=== PATIENT | male | born 1980 | race American Indian/Alaskan Native ===

== ENCOUNTER 2017-10-20 16:38 | Inpatient (IN) | payer MEDICAID, OTHER ==
[2017-10-20 17:38] LABS: BASO # 0.1 K/uL (0.0-0.2); BASO % 1.1 % (0.0-2.0); EOS # 0.3 K/uL (0.0-0.7); EOS % 5.2 % (0.0-4.0); HEMOGLOBIN 13.6 g/dL (12.0-18.0); LYMPH # 2.3 K/uL (1.0-4.3); LYMPH % 36.4 % (20.0-40.0); MEAN CELL VOLUME 90.4 fL (80.0-94.0); MEAN CORPUSCULAR HEMOGLOBIN 30.1 pg (27.0-31.0); MEAN CORPUSCULAR HGB CONC 33.3 g/dL (33.0-37.0); MEAN PLATELET VOLUME 7.6 fL (7.2-11.7); MONO # 0.5 K/uL (0.0-0.8); NEUT # 3.2 K/uL (1.8-7.0); NEUT % 50.3 % (50.0-75.0); NRBC % 0.1 % (0.0-2.0); RBC 4.52 Mil/uL (4.40-5.90); RED CELL DISTRIBUTION WIDTH 13.8 % (11.5-14.5); WHITE BLOOD COUNT 6.4 K/uL (4.8-10.8)
[2017-10-20 17:51] LABS: ALB/GLOB RATIO 1.3 (1.0-2.1); ALBUMIN 3.9 g/dL (3.5-5.0); ALT/SGPT 41 U/L (21-72); AST/SGOT 33 U/L (17-59); BLOOD UREA NITROGEN 17 mg/dL (9-20); CALCIUM 9.1 mg/dl (8.6-10.4); GFR AFRICAN-AMERICAN > 60; GFR NON-AFRICAN AMERICAN > 60
--- NOTE | 2017-10-20 18:23 | C.PDOC ---
History Of Present Illness <Masonclark Yunior - Last Filed: 10/20/17 18:49> <Rolo Chavez R - Last Filed: 10/20/17 19:29> 36-year-old male, presents to the emergency department pre screened for detox from alcohol, heroin and xanax. Patient denies any SI/HI. (Yunior Reed DO ) History Per: Patient History/Exam Limitations: no limitations <Brianna MARYYunior - Last Filed: 10/20/17 18:49> <Rolo Chavez R - Last Filed: 10/20/17 19:29> Chief Complaint (Nursing): Substance Abuse Past Medical History Reviewed: Historical Data, Nursing Documentation, Vital Signs - Medical History PMH: Asthma Surgical History: Appendectomy Family History: States: No Known Family Hx - Social History Hx Alcohol Use: Yes Hx Substance Use: Yes - Immunization History Hx Tetanus Toxoid Vaccination: Yes Hx Influenza Vaccination: No Hx Pneumococcal Vaccination: No <Brianna MARYYunior - Last Filed: 10/20/17 18:49> Vital Signs: Last Vital Signs Temp 98.7 F 10/20/17 16:49 Pulse 79 10/20/17 16:49 Resp 18 10/20/17 16:49 BP 139/66 10/20/17 16:49 Pulse Ox 99 10/20/17 18:49 Review Of Systems Constitutional: Negative for: Fever, Chills Cardiovascular: Negative for: Chest Pain Respiratory: Negative for: Shortness of Breath Gastrointestinal: Negative for: Nausea, Vomiting Psych: Negative for: Suicidal ideation, Withdrawal <Brianna Yunior - Last Filed: 10/20/17 18:49> Physical Exam - Physical Exam Appears: Non-toxic, No Acute Distress Skin: Normal Color, Warm, Dry Head: Atraumatic, Normacephalic Eye(s): bilateral: Normal Inspection, PERRL, EOMI Nose: Normal Oral Mucosa: Moist Lips: Normal Appearing Neck: Normal ROM Cardiovascular: Rhythm Regular, No Murmur Respiratory: Normal Breath Sounds, No Accessory Muscle Use Gastrointestinal/Abdominal: Soft, No Tenderness Back: Normal Inspection Extremity: Normal ROM, No Deformity Neurological/Psych: Oriented x3, Normal Speech <Brianna MARYYunior - Last Filed: 10/20/17 18:49> ED Course And Treatment - Laboratory Results Result Diagrams: 10/20/17 17:35 10/20/17 17:35 O2 Sat by Pulse Oximetry: 99 (RA) Pulse Ox Interpretation: Normal <Yunior Reed DO - Last Filed: 10/20/17 18:49> - Laboratory Results Result Diagrams: 10/20/17 17:35 10/20/17 17:35 <Rolo Chavez - Last Filed: 10/20/17 19:29> Disposition <Yunior Reed DO - Last Filed: 10/20/17 18:49> Discussed With Dr.: Jerome Uriarte Doctor Will See Patient In The: Hospital Counseled Patient/Family Regarding: Diagnosis - Disposition Disposition Time: 19:29 - POA Present On Arrival: None <Rolo Chavez - Last Filed: 10/20/17 19:29> - Disposition Disposition: HOSPITALIZED Condition: STABLE Forms: [facility] (Lithuanian) - Clinical Impression Clinical Impression: Drug abuse, Drug dependence - Scribe Statement The provider has reviewed the documentation as recorded by the Scribe (Fer Garcia) <Yunior Reed DO - Last Filed: 10/20/17 18:49> <Rolo Chavez - Last Filed: 10/20/17 19:29> - Scribe Statement All medical record entries made by the Scribe were at my direction and personally dictated by me. I have reviewed the chart and agree that the record accurately reflects my personal performance of the history, physical exam, medical decision making, and the department course for this patient. I have also personally directed, reviewed, and agree with the discharge instructions and disposition. (Yunior Reed DO)
[2017-10-20 18:31] LABS: URINE BACTERIA RARE (<OCC); URINE BILIRUBIN NEGATIVE (NEGATIVE); URINE BLOOD NEGATIVE (NEGATIVE); URINE CLARITY Clear (Clear); URINE COLOR Yellow (YELLOW); URINE GLUCOSE (UA) NORMAL (Normal); URINE LEUKOCYTE ESTERASE NEG Leu/uL (Negative); URINE PROTEIN NEGATIVE (NEGATIVE)
[2017-10-20 18:54] LABS: BARBITURATES, UR NEGATIVE (NEGATIVE); BENZODIAZEPINES, UR NEGATIVE (NEGATIVE); PHENCYCLIDINE, UR NEGATIVE (NEGATIVE)
[2017-10-20 19:04] LABS: OPIATES, UR POSITIVE (NEGATIVE)
--- NOTE | 2017-10-20 19:51 | PCM.BM ---
<Cece Lundberg - Last Filed: 10/20/17 19:49> Treatment Plan Problems - Problems identified on initial assessmt Potential for opiate withdrawal Date Initiated: 10/20/17 Time Initiated: 19:50 Assessment reference: NA Status: Active Priority: 1 Potential for alcohol withdrawal Date Initiated: 10/20/17 Time Initiated: 19:50 Assessment reference: NA Status: Active Priority: 2 Treatment assets and liabiliti Patient Assests: ADL independent, negotiates basic needs, cognitively intact Patient Liabilities: substance abuse (Opiate, Alcohol,cocaine) - Milieu Protocol Maintain good personal hygiene: daily Encourage regular showers, daily Remind patient to perform daily oral care, daily Assist patient to perform ADL's Conduct patient checks and document Observation sheet: Q15 minutes Maintain personal safety: every shift Educate patient to report safety concerns to staff, every shift Monitor environment for contraband/sharps Medication safety: Monitor for expected outcome, potential side effects: every shift, Assess barriers to learning: every shift, Assess readiness for medication education: every shift <Nacho Bertrand - Last Filed: 10/21/17 14:12> - Diagnosis (1) Opioid use disorder, severe, dependence Status: Acute Interventions: 10/21/17 14:11 * Assess 7x/week regarding severity of withdrawal * Educate regarding risks, benefits, side effects and alternatives of medications * Use Motivational Interviewing for abstinence * Use CBT for relapse prevention * Medication management for withdrawal symptoms * Encourage medication assisted treatment *
[2017-10-20] MEDS ORDERED: Albuterol HFA 90 mcg/actuation (8 g) INH PRN (19:54)
--- NOTE | 2017-10-21 13:37 | PCM.PSYCH ---
Initial Psychiatric Evaluation - Initial Psychiatric Evaluation Type of Admission: Voluntary Legal Status: Capacity Chief Complaint (in patient's own words): "I need detox" History of Present Illness and Precipitating Events: The patient is seen, chart reviewed and case discussed. This is a 37-year-old -[place] male, single with one adult son, lives in a long-term, unemployed. The patient is here for heroin detox; he is using 10 bags intranasally for the past 4 years. He was in detox only once and has never been on Suboxone or methadone. He also does cocaine by smoking the last 4 years. He denies other drugs. He admits to drinking a pint of liquor or "lots of" beer, since age 12. However , he has minimal withdrawal symptoms. He admits to smoking marijuana and cigarettes. Past psych history: "I always feel depressed," he states. He has no admissions to psychiatry and no suicide attempts. Family psych history: Uncle used drugs and had psychiatric problems and grandmother was an alcoholic. Medical history: Asthma Current Medications: Active Medications Generic Name Dose Route Start Last Admin Trade Name Freq PRN Reason Stop Dose Admin Al Hydrox/Mg Hydrox/Simethicone 30 ml 10/20/17 20:19 Maalox 30 Ml PO TID PRN Indigestion / Heartburn Albuterol 1 puff 10/20/17 19:54 Ventolin Hfa 90 Mcg/Actuation (8 G) INH RQ6 PRN Shortness of Breath Clonidine HCl 0.1 mg 10/20/17 20:19 Catapres PO Q8 PRN COWS Score More or Equal to 5 Hydroxyzine HCl 25 mg 10/20/17 20:19 Atarax PO Q6 PRN Anxiety Ketoconazole 1 gm 10/21/17 14:00 Nizoral TOP DAILY ELSA Loperamide HCl 2 mg 10/20/17 20:19 Imodium PO Q8 PRN Diarrhea Methadone HCl 15 mg 10/21/17 10:00 10/21/17 09:25 Methadone PO 10/25/17 09:59 15 mg DAILY ELSA Administration Taper Nicotine 1 patch 10/21/17 10:15 10/21/17 11:37 Nicoderm Cq TD 1 patch DAILY ELSA Administration Ondansetron HCl 4 mg 10/20/17 20:19 10/21/17 11:38 Zofran Tab PO 4 mg Q8 PRN Administration Nausea/Vomiting Pseudoephedrine HCl 60 mg 10/20/17 20:19 Sudafed Tab PO QID PRN Nasal/Sinus Congestion Trazodone HCl 50 mg 10/20/17 22:00 10/20/17 21:36 Desyrel PO 50 mg HS ELSA Administration Past Psychiatric History - Past Psychiatric History Previous Treatment History: None Pertinent Medical Hx (Current Medical&Sleep Prob, Allergies): Allergies Allergy/AdvReac Type Severity Reaction Status Date / Time No Known Allergies Allergy Verified 10/20/17 16:47 Selenium Sulfide 10/20/17 Ventolin Hfa 10/20/17 Review of Systems - Neurological Neurological: UNREMARKABLE - Psychiatric Psychiatric: Abnormal Sleep Pattern, Anhedonia, Anxiety, Depression, Difficulty Concentrating. absent: Hallucinations, Homicidal Ideation, Irritability, Paranoia, Suicidal Ideation Mental Status Examination - Personal Presentation Personal Presentation: Looks stated age - Affect Affect: Constricted - Motor Activity Motor Activity: Calm - Reliability in Providing Information Reliability in Providing Information: Good - Speech Speech: Organized - Mood Mood: Depressed, Anxious - Formal Thought Process Formal Thought Process: No Impairment - Cognitive Functions Orientation: Person, Place, Situation, Time Sensorium: Alert Attention/Concentration: Attentive Estimate of Intelligence: Average Judgement: Intact, as evidence by: Insight regarding need for hospitalization Memory: Recent intact, as evidence by: Ability to recall events of the day, Remote intact, as evidenced by: Abilit to recall sig. life events - Risk Risk: Withdrawal, Diminished functioning - Strength & Assets Inventory Strength & Assets Inventory: Cooperative - Limitations Limitations: Living alone, Other DSM 5 DX - DSM 5 DSM 5 Diagnosis: Opioid withdrawal Opioid use d/o- severe Cocaine use d/o- severe Major depression, single/moderate and dysthymic d/o - Recommended/Plan of Treatment Treatment Recommendations and Plan of Treatment: Taper with methadone Gabapentin for augmentation Remeron for depression As needed medications All risks, benefits and alternatives of the meds discussed, and the pt agreed and understood. Attend groups and activities Supportive therapy and psychoeducation MS for abstinence CBT for relapse prevention Encourage MAT Refer to rehab or IOP, and self-help groups Smoking cessation with MS Nicotine patch if needed 34 min Projected ELOS: 5-6 days Prognosis: good - Smoking Cessation Smoking Cessation Initiated: Yes
[2017-10-21] MEDS ORDERED: Magnesium Hydroxide Susp 30 ml UD PO ONE (13:50)
[2017-10-21] MEDS: Aluminum Hydroxide/Magnesium Hydroxide Susp (30 mL) PO PRN (20:17)
--- NOTE | 2017-10-22 09:04 | PCM.PYCHPN ---
Psychiatric Progress Note - Psychiatric Progress Note Patient seen today, length of contact: 16 min Patient Chief Complaint: "I have stomach ache" Problems Identified/Issues Discussed: The pt is seen, chart reviewed, case discussed with staff. Support and psychoeducation given, CBT and PA used briefly No new symptoms reported, improving slowly and needs more time No SEs from medications, risks discussed. After care discussed meds offered for pain Medication Change: Yes (detox changes daily) Medical Record Reviewed: Yes Mental Status Examination - Cognitive Function Orientation: Person, Place, Situation, Time Memory: Intact Attention: WNL Concentration: Poor Association: WNL Fund of Knowledge: WNL - Mood Mood: Depressed, Anxious - Affect Affect: Constricted - Speech Speech: Appropriate - Formal Thought Process Formal Thought Process: No Impairment - Suicidal Ideation Suicidal Ideation: No - Homicidal Ideation Homicidal Ideation: No Goal/Treatment Plan - Goal/Treatment Plan Need for Continued Stay: Discharge may exacerbated symptoms, Severe functional impairment Progress Toward Problem(s) and Goals/Treatment Plan: Taper with methadone Gabapentin for augmentation Remeron for depression As needed medications All risks, benefits and alternatives of the meds discussed, and the pt agreed and understood. Attend groups and activities Supportive therapy and psychoeducation PA for abstinence CBT for relapse prevention Encourage MAT Refer to rehab or IOP, and self-help groups Smoking cessation with PA Nicotine patch if needed Estimated Date of D/C: 10/25/17 - Smoking Cessation Smoking Cessation Initiated: Yes
[2017-10-22] MEDS: Pantoprazole 20 mg EC Tab PO SCH (14:11)
[2017-10-22] MEDS ORDERED: Bisacodyl 5mg EC Tab PO ONE ×2 (17:10→18:16)
[2017-10-23] MEDS: Pantoprazole 20 mg EC Tab PO SCH (09:44)
--- NOTE | 2017-10-23 11:49 | PCM.PYCHPN ---
Psychiatric Progress Note - Psychiatric Progress Note Patient seen today, length of contact: 15 min Patient Chief Complaint: "I am OK" Problems Identified/Issues Discussed: The pt is seen, chart reviewed, case discussed with staff. The pt is compliant with medications and reports no side-effects. Symptoms are improving but needs more time to stabilize. After care discussed, support and psychoeducation given. Medication Change: Yes (detox changes daily) Medical Record Reviewed: Yes Mental Status Examination - Cognitive Function Orientation: Person, Place, Situation, Time Memory: Intact Attention: WNL Concentration: Poor Association: WNL Fund of Knowledge: WNL - Mood Mood: Depressed, Anxious - Affect Affect: Constricted - Speech Speech: Appropriate - Formal Thought Process Formal Thought Process: No Impairment - Suicidal Ideation Suicidal Ideation: No - Homicidal Ideation Homicidal Ideation: No Goal/Treatment Plan - Goal/Treatment Plan Need for Continued Stay: Discharge may exacerbated symptoms, Severe functional impairment Progress Toward Problem(s) and Goals/Treatment Plan: Taper with methadone Gabapentin for augmentation Remeron for depression As needed medications All risks, benefits and alternatives of the meds discussed, and the pt agreed and understood. Attend groups and activities Supportive therapy and psychoeducation RI for abstinence CBT for relapse prevention Encourage MAT Refer to rehab or IOP, and self-help groups Smoking cessation with RI Nicotine patch if needed Estimated Date of D/C: 10/25/17
[2017-10-23] MEDS: Aluminum Hydroxide/Magnesium Hydroxide Susp (30 mL) PO PRN (18:55)
[2017-10-24 06:22] VITALS: RESP 18
[2017-10-24] MEDS: Pantoprazole 20 mg EC Tab PO SCH (10:58)
[2017-10-24] MEDS: Aluminum Hydroxide/Magnesium Hydroxide Susp (30 mL) PO PRN (13:45)
[2017-10-24 19:40] VITALS: TEMP 98.3
--- NOTE | 2017-10-24 22:21 | PCM.PYCHPN ---
Psychiatric Progress Note - Psychiatric Progress Note Patient seen today, length of contact: 15 min Patient Chief Complaint: "I am tired but better" Problems Identified/Issues Discussed: The pt is seen, chart reviewed, case discussed with staff. Support given, CBT and NV used briefly No new symptoms reported, improving slowly and needs more time No SEs from medications, risks discussed. After care discussed - will go to [facility] Medication Change: Yes (detox changes daily) Medical Record Reviewed: Yes Mental Status Examination - Cognitive Function Orientation: Person, Place, Situation, Time Memory: Intact Attention: WNL Concentration: Poor Association: WNL Fund of Knowledge: WNL - Mood Mood: Depressed, Anxious - Affect Affect: Constricted - Speech Speech: Appropriate - Formal Thought Process Formal Thought Process: No Impairment - Suicidal Ideation Suicidal Ideation: No - Homicidal Ideation Homicidal Ideation: No Goal/Treatment Plan - Goal/Treatment Plan Need for Continued Stay: Discharge may exacerbated symptoms, Severe functional impairment Progress Toward Problem(s) and Goals/Treatment Plan: Taper with methadone Gabapentin for augmentation Remeron for depression As needed medications All risks, benefits and alternatives of the meds discussed, and the pt agreed and understood. Attend groups and activities Supportive therapy and psychoeducation NV for abstinence CBT for relapse prevention Encourage MAT Refer to rehab or IOP, and self-help groups Smoking cessation with NV Nicotine patch if needed Estimated Date of D/C: 10/25/17
[2017-10-25 06:26] VITALS: BP 104/67; PULSE 71; O2SAT 99
--- NOTE | 2017-10-25 08:23 | PCM.PYCHDC ---
Mental Status Examination - Mental Status Examination Orientation: Person, Place, Situation, Time Memory: Intact Mood: Anxious Affect: Constricted Speech: Appropriate Attention: WNL Concentration: WNL Association: WNL Fund of Knowledge: WNL Formal Thought Process: No Impairment Suicidal Ideation: No Current Homicidal Ideation?: No Discharge Summary - Discharge Note Reason for Hospitalization: opioid detox Consultations:: List each consultation separately and include: 1. Reason for request. 2. Findings. 3. Follow-up Summary of Hospital Course include:: 1. Description of specific treatment plan utilized for patients during their course of treatmen. 2. Summarize the time- course for resolution of acute symptoms and/or regressed behaviors. 3. Describe issues identified and worked on during hospitalization. 4. Describe medication utilized. 5. Describe medical problems identified and treated. 6. Reassessment of suicide risk Summary of Hospital Course: The patient is seen, chart reviewed and case discussed. On admission: This is a 37-year-old -[place] male, single with one adult son, lives in a intermediate, unemployed. The patient is here for heroin detox; he is using 10 bags intranasally for the past 4 years. He was in detox only once and has never been on Suboxone or methadone. He also does cocaine by smoking the last 4 years. He denies other drugs. He admits to drinking a pint of liquor or "lots of" beer, since age 12. However , he has minimal withdrawal symptoms. He admits to smoking marijuana and cigarettes. Past psych history: "I always feel depressed," he states. He has no admissions to psychiatry and no suicide attempts. Family psych history: Uncle used drugs and had psychiatric problems and grandmother was an alcoholic. Medical history: Asthma Hospital course: The pt was admitted and started on treatment with psychotherapy, support, psychoeducation and medications. AR and CBT used. The pt attended groups and activities, as well as milieu therapy. All the risks and benefits of medications are discussed and the patient understood and agreed. The pt improved with the treatments provided. After care discussed with the patient. He will go to [facility]. - Final Diagnosis (DSM 5) Condition upon Discharge: IMPROVED DSM 5: Opioid withdrawal Opioid use d/o- severe Cocaine use d/o- severe Major depression, single/moderate and dysthymic d/o Disposition: REHAB FACILITY/REHAB UNIT Follow-up Treatment Plan: Continue below medications after discharge. Follow after care plan as discussed. Use relapse prevention skills Return to ER or call 911 if suicidal, homicidal or symptoms relapse. Stay away from stress, alcohol and drugs. See primary doctor regularly and get labs. Prescriptions/Medication Reconciliation: Albuterol HFA [Ventolin HFA 90 mcg/actuation (8 g)] 1 puff INH RQ6 PRN #1 inhaler PRN Reason: Shortness Of Breath Mirtazapine [Remeron] 15 mg PO HS #30 tab Pantoprazole [Protonix EC Tab] 20 mg PO DAILY #30 ect traZODone [Desyrel] 50 mg PO HS #30 tab - Smoking Cessation Smoking Cessation Medication prescribed: No - Antipsychotic Medications Pt discharged on 2 or more routine antipsychotic medications: No
== END 2017-10-25 08:40 | disposition home or self-care (01) | DRG 745 ==
LOC: C.ER 16:38 → C.7D 19:30
PROVIDERS: ADMIT Psychiatry & Neurology Psychiatry; ATTEND Psychiatry & Neurology Psychiatry
PROC: HZ2ZZZZ Detoxification Services for Substance Abuse Treatment (ICD-10-PCS; principal; 2017-10-20)
PROC: HZ59ZZZ Individual Psychotherapy for Substance Abuse Treatment, Supportive (ICD-10-PCS; 2017-10-20)
PROC: HZ46ZZZ Group Counseling for Substance Abuse Treatment, Psychoeducation (ICD-10-PCS; 2017-10-20)
PROC: GZ3ZZZZ Medication Management (ICD-10-PCS; 2017-10-20)
PROC: HZ90ZZZ Pharmacotherapy for Substance Abuse Treatment, Nicotine Replacement (ICD-10-PCS; 2017-10-20)
DX: F11.23 Opioid dependence with withdrawal (principal); F14.90 Cocaine use, unspecified, uncomplicated; F12.90 Cannabis use, unspecified, uncomplicated; F17.210 Nicotine dependence, cigarettes, uncomplicated; F32.1 Major depressive disorder, single episode, moderate; F34.1 Dysthymic disorder; J45.909 Unspecified asthma, uncomplicated; Z81.1 Family history of alcohol abuse and dependence